=== PATIENT | female | born 1955 | race Caucasian/White ===

== ENCOUNTER 2018-09-23 07:50 | Emergency (ER) | payer BC ==
[2018-09-23 08:21] VITALS: BP 147/63
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
== END 2018-09-23 08:30 | disposition home or self-care (01) ==
LOC: UCCORT 07:50
DX: L60.0 Ingrowing nail (principal); Z91.040 Latex allergy status; Z87.891 Personal history of nicotine dependence
CPT/HCPCS: 99201; G0463